=== PATIENT | female | born 1960 | race Caucasian/White ===

== ENCOUNTER 2018-07-05 10:54 | Outpatient (CLI) | payer MEDICARE, BC | END 2018-07-05 23:59 | disposition home or self-care (01) | LOC: VAS 10:54 | PROVIDERS: ATTEND Surgery | DX: I73.9 Peripheral vascular disease, unspecified (principal); I10 Essential (primary) hypertension | CPT/HCPCS: 93923 ==

== ENCOUNTER 2025-01-09 11:56 | Emergency (ER) | payer MEDICARE ==
[~2025-01-09] VITALS: Ht 160 cm; Wt 77.0 kg
[2025-01-09 12:49] LABS: MEAN PLATELET VOLUME 8.4 FL (7.4-10.4); RED CELL DISTRIBUTION WIDTH 13.3 % (11.5-14.5)
[2025-01-09 13:08] LABS: CREATININE 0.84 MG/DL (0.40-0.90); TOTAL CARBON DIOXIDE 29.3 MMOL/L (24-32); eCRCL 57 ML/MIN; eGFR 69 ML/MIN
--- NOTE | 2025-01-09 14:48 | Physician Documentation ---
History of Present Illness ~ Chief Complaint: Flank Pain Stated Complaint: KIDNEY STONE Time Seen by MD: 13:58 Primary Medical Doctor: BEE ABEL 64-year-old female presenting with flank pain She tells me that she was recently diagnosed with a urinary tract infection within the past week. She has been on ciprofloxacin for several days. She tells me that she has been having pain in her right flank. She states it is located in the right flank with no significant radiation and has not really changed locations. It is intermittent and sometimes severe. She also reports pain in her urethra, which feels like a nail going in it. She has been taking tramadol and Flomax. She was sent him by her primary care doctor with concern for possible kidney stone. Does report a low-grade fever. No other new or different symptoms Medication Reconciliation Allergies: Coded Allergies: hydrocodone bit (Unverified Allergy, Unknown, 01/09/25) morphine (Unverified Allergy, Unknown, 01/09/25) Past Medical History Past Surgical History: appendectomy, cholecystectomy, hysterectomy Alcohol Use: None Drug Use: none Lives with: Spouse Lives In: Home Occupation: employed Review of Systems Constitutional: Reports: fever Genitourinary: Reports: dysuria, flank pain Physical Exam Vital Signs: Temperature: 97.9, Source: Temporal, Heart Rate: 88, Respiratory Rate: 18, BP: 159/82, Pulse Oximetry: 100, Weight: 77.000 Physical Exam General: This is a pleasant and nontoxic appearing middle-aged woman, at bedside HEENT: Atraumatic, oropharynx is moist Heart: Regular rate and rhythm, normal-appearing peripheral perfusion Lungs: normal work of breathing, normal oxygen saturation on room air Abdomen: Soft, nondistended, mild discomfort on palpation of the lower abdomen but no significant rebound or guarding Back: The patient does have right CVA tenderness to percussion Neuro: Alert and oriented Psychiatric: Calm and cooperative with exam Progress Results/Orders Results/Orders Orders - GREYSON CARBONE MD Ct Abdomen Pelvis (01/09/25 15:07) Completed Orders - GREYSON CARBONE MD Cbc/Diff (01/09/25 12:17) CMP (01/09/25 12:17) Urinalysis, Cult If Indicated (01/09/25 13:58) Ct Abdomen Pelvis (01/09/25 15:07) Vital Signs 01/09/25 01/09/25 01/09/25 01/09/25 12:13 14:10 15:30 16:00 Temp 97.9 Pulse 88 85 83 Resp 18 16 16 17 B/P (MAP) 159/82 131/63 (85) 139/73 (95) Pulse Ox 100 99 98 O2 Flow Rate 0 0 01/09/25 01/09/25 16:37 16:45 Temp 98.0 Pulse 87 64 Resp 18 16 B/P (MAP) 142/67 (92) 142/67 Pulse Ox 100 99 O2 Flow Rate 0 Laboratory Tests Test 01/09/25 12:28 01/09/25 12:33 White Blood Count 5.1 Red Blood Count 4.52 Hemoglobin 14.3 Hematocrit 42.1 Mean Corpuscular Volume 93.2 Mean Corpuscular Hemoglobin 31.7 H Mean Corpuscular Hemoglobin Concent 34.0 Red Cell Distribution Width 13.3 Platelet Count 230 Mean Platelet Volume 8.4 Neutrophils (%) (Auto) 63.7 Lymphocytes (%) (Auto) 25.4 Monocytes (%) (Auto) 8.5 Eosinophils (%) (Auto) 1.2 Basophils (%) (Auto) 1.2 H Neutrophils # (Auto) 3.2 Lymphocytes # (Auto) 1.3 Monocytes # (Auto) 0.4 Eosinophils # (Auto) 0.1 Basophils # (Auto) 0.1 CBC Comment Sodium Level 139 Potassium Level 3.9 Chloride Level 106 Carbon Dioxide Level 29.3 Anion Gap 4 L Blood Urea Nitrogen 15 Creatinine 0.84 Estimated GFR/1.73 m2 69 BUN/Creatinine Ratio 17.9 Glucose Level 109 H Calcium Level 8.8 Total Bilirubin 0.4 Aspartate Amino Transf (AST/SGOT) 36 Alanine Aminotransferase (ALT/SGPT) 75 Alkaline Phosphatase 164 H Total Protein 7.9 Albumin 3.7 Globulin 4.2 Albumin/Globulin Ratio 0.9 L Chemistry Comments Urine Specimen Description Urinal Urine Color Yellow Urine Clarity Clear Urine pH 5.5 Urine Specific [place] 1.010 Urine Protein Negative Urine Glucose (UA) Negative Urine Ketones Negative Urine Occult Blood Negative Urine Nitrite Negative Urine Bilirubin Negative Urine Urobilinogen 0.2 Urine Leukocyte Esterase Negative Urine Culture Indicated Not ind Volume Urine Centrifuged 10 ml Urine Comment EKG/XRAY/CT/US/VASC/MRI CT : Impression I personally interpreted the CT scan, and this shows no obvious kidney stone or hydronephrosis Medical Decision Making Additional information obtaine: family Findings Spoke to regarding her symptoms Diff Dx GI Bleed:Consideration: Unlikely: Gastritis Diff Dx Pain:Considerations: Include: Appendicitis, Cholecystitis, Constipation, Diverticular disease Diff Dx N/V/D:Considerations: Include: Appendicitis Diff Dx Rectal:Considerations: Unlikely: Rectal prolapse Additional Comments The patient presents with right flank pain in the setting of recent urinary tract infection. She has already been on antibiotics. On exam she does have findings concerning for possible kidney process including stone or pyelonephritis. Labs are grossly unremarkable. Urinalysis unremarkable. CT scan shows no kidney stone or other abnormality. On re-evaluation later, she did seem to have some reproducible chest wall pain. This could be a muscle strain or spasm. She could also still have some remnant of pyelonephritis but she is on an appropriate antibiotic. Regardless, she appears safe for discharge home with ongoing symptomatic treatment. Return precautions given. Departure Time of Disposition: 16:21 Disposition: 01 HOME / SELF CARE / HOMELESS Impression: Primary Impression: Flank pain, right side Condition: Stable Discharge Instructions: Flank Pain, Adult Referrals: NO PRIMARY CARE PROVIDER (PCP) Education Educated: Patient Educated regarding: diagnosis, treatment, need for follow up Signature Scribe Signature: na Attestation: GREYSON Marrufo MD Jan 09, 2025 14:48
[2025-01-09 15:31] LABS: LEUKOCYTE ESTERASE ,URINE NEGATIVE (Neg); NITRITES, URINE NEGATIVE (Neg); OCCULT BLOOD,URINE NEGATIVE (Neg)
[2025-01-09 15:37] LABS: UA COLLECTION TYPE URINAL
--- NOTE | 2025-01-09 16:05 | RADIOLOGY REPORT ---
COMPUTERIZED TOMOGRAPHY ABDOMEN AND PELVIS WITHOUT CONTRAST REASON FOR EXAM: right flank pain COMPARISON: None TECHNIQUE: The exam was performed on a Multidetector scanner. Spiral scans were acquired from the diaphragm to the symphysis pubis without contrast. 2-D coronal and sagittal reformatted images were provided. Radiation optimization: All CT scans at this facility use at least one of these dose optimization techniques: Automated exposure control mA and/or kV adjustment per patient size (includes targeted exams where dose is matched to clinical indication) or iterative reconstruction. RADIATION DOSE: CTDI: 32 mGy DLP: 1138 mGy-cm FINDINGS: There is minimal dependent atelectasis in bilateral lower lobes of the lungs. There is no pleural effusion. There is no pericardial effusion. The spleen is not enlarged. The liver is normal in size and contour. Evaluation of the abdominal organs is suboptimal in the absence of intravenous contrast. The gallbladder is surgically absent. Unenhanced appearance of the pancreas is unremarkable. The adrenal glands are normal. The kidneys are similar in size. There is no hydronephrosis of either kidney. There is no renal, ureteral, or bladder calculus there is no abdominal aortic aneurysm. There is no pathologic lymphadenopathy by size criteria. No free fluid is identified. The urinary bladder is within normal limits. The uterus is absent. The left ovary is within normal limits. The right ovary is not seen and is likely absent. There is sigmoid diverticulosis without evidence of diverticulitis. The colonic stool burden is small. The appendix is surgically absent. There is a generator within the subcutaneous fat of the left flank with electrodes terminating in the right presacral region adjacent to the distal sigmoid colon and right piriformis muscle. There is no pathologic distention of the small bowel. No acute osseous abnormality is identified. IMPRESSION: No hydronephrosis of either kidney. No renal, ureteral, or bladder calculus. Partial hysterectomy. Left ovary unremarkable. Right ovary not seen and is likely absent. Gallbladder and appendix surgically absent.
[2025-01-09 16:45] VITALS: BP 142/67; PULSE 64; RESP 16; TEMP 98; O2SAT 99
== END 2025-01-09 16:48 | disposition home or self-care (01) ==
LOC: ER 11:56
DX: R10.A1 Flank pain, right side (principal); Z88.5 Allergy status to narcotic agent; Z90.49 Acquired absence of other specified parts of digestive tract; Z90.710 Acquired absence of both cervix and uterus
CPT/HCPCS: 36415; 74176; 80053; 81003; 85025; 99284